=== PATIENT | male | born 1990 | race Caucasian/White ===

== ENCOUNTER 2022-04-07 23:18 | Emergency (ER) | payer MEDICAID, SELFPAY ==
[2022-04-07 23:18] VITALS: BP 174/89; PULSE 96; RESP 16; TEMP 36.7; O2SAT 98; BMI 23.3
--- NOTE | 2022-04-07 23:41 | [facility].EDDENT ---
Discharge Plan Disposition Patient Disposition: Home, Self-Care Prescriptions Prescriptions: New cephalexin 500 mg capsule 500 mg PO Q8H 7 Days Qty: 21 0RF No Action cetirizine [Zyrtec] 10 mg tablet 10 mg PO DAILY Qty: 30 0RF fluticasone propionate [Flonase Allergy Relief] 50 mcg/actuation spray,suspension 1 spray INTRANASAL DAILY Qty: 9.9 0RF Rx Instructions: administer into each nostril Referrals Follow up/Referrals: Provider,Referral, MD [Primary Care Provider] - See instructions Clinical Impressions Clinical Impression: Dental caries, Toothache Instructions Patient Instructions: DI for Dental Pain Discharge ED Provider: Renny (ED[facility] HPI General Chief complaint: Dental/Oral Stated complaint: infected tooth, swelling Time Seen by Provider: 04/07/22 23:41 Mode of Arrival: Ambulatory Source of Information: Patient and Medical Record Limitations: No Limitations Description of Symptoms (Recalled from ER Triage Doc. by RN): pt c/o lt upper tooth pain x 2 days History of Present Illness HPI Narrative: lt upper dental pain over the last 2 days Complaint: tooth pain Onset (ago): day(s) Duration: intermittent Severity: moderate Context: history of dental caries Associated symptoms: gum swelling Related Data Previous Rx's Medication Instructions Recorded cetirizine 10 mg tablet (Zyrtec) 10 mg PO DAILY #30 tabs 08/02/ fluticasone propionate 50 1 spray intranasal DAILY #9.9 mL 08/02/ mcg/actuation nasal spray,suspension (Flonase Allergy Relief) cephalexin 500 mg capsule 500 mg PO Q8H 7 days #21 caps 04/07/22 Allergies Allergy/AdvReac Type Severity Reaction Status Date / Time PENICILLIN Allergy Unknown I-HIVES Uncoded 02/23/17 14:05 [facility] Disclaimer: The information contained in this section may have been updated after the patient was seen, as this information can be updated by other users. Social History Smoking Status: Current every day smoker alcohol intake: never substance use type: denies use current occupational status: employed Travel in the last 8 weeks: None household members: family housing: house ROS Obtained: Yes All systems reviewed & no additional complaints except as documented Physical Exam General General appearance: alert Head Head exam: normocephalic Eye Eye exam: Present PERRL and EOMI ENT ENT exam: Present mucous membranes moist Expanded ENT Exam Teeth exam: Present dental caries and gingival swelling Throat exam: Absent tonsillar exudate Neck Neck exam: Present trachea midline Respiratory Respiratory exam: Absent respiratory distress Cardiovascular Cardiovascular exam: Present regular rate Extremities Exam Extremities exam: Present full ROM Neurological Exam Neurological exam: Present alert and CN II-XII intact Psychiatric Psychiatric exam: Present normal affect Skin Skin exam: Absent rash Medical Decision Making Medical Records Medical records reviewed: Yes I reviewed the patient's medical records. [place] Inquiry Pt receiving controlled substance: No Vital Signs: 04/07/22 23:18 Temperature 98.1 F Temperature Source Oral Pulse Rate [Right] 96 H Respiratory Rate 16 Blood Pressure [Right Arm] 174/89 H Blood Pressure Mean [Right Arm] 117 02 Sat by Pulse Oximetry 98 Lab Data Lab results reviewed: Yes I reviewed the patient's lab results. Orders (Tests/Meds): ED MEDICATIONS Discontinued Medications Generic Name Dose Route Start Last Admin Trade Name Freq PRN Reason Stop Dose Admin Benzocaine/Butamben/Tetracaine HCl 1 gm 04/07/22 23:27 04/07/22 23:33 Tetracaine/Benzocaine/Butamben 56 Gm [place] TP 04/07/22 23:28 1 gm ONCE ONE Administration Lidocaine HCl 15 ml 04/07/22 23:27 04/07/22 23:33 Lidocaine 2% Viscous [place] 15ml Udc PO 04/07/22 23:28 15 ml ONCE ONE Administration Medical Decision Narrative: has dental pain and infection -
[2022-04-07 23:55] VITALS: BP 156/74; PULSE 91; RESP 16; TEMP 36.7; O2SAT 98
== END 2022-04-07 23:57 | disposition home or self-care (01) ==
PROVIDERS: Emergency Provider Emergency Medicine
DX: K02.9 Dental caries, unspecified (principal); K08.89 Other specified disorders of teeth and supporting structures; F17.210 Nicotine dependence, cigarettes, uncomplicated
CPT/HCPCS: 99283; 99284